=== PATIENT | male | born 1955 | race Caucasian/White ===

== ENCOUNTER 2021-02-28 18:07 | Inpatient (IN) | payer OTHER, MEDICARE ==
[~2021-02-28] VITALS: Ht 170.2 cm; Wt 79.5 kg
[2021-02-28] VITALS (10 sets, daily range): BP systolic 120–144; BP diastolic 60–74
[~2021-02-28 18:07] MED LIST: AMLO10TA PO; ASPI-845 PO; BUPR100T5 PO; LISI30TA4 PO; METO50TA7 PO; TRAM50TA2 PO
[2021-02-28] MEDS ORDERED: pantoprazole 40 MG vial IV ONE (18:35)
[2021-02-28 19:09] LABS: BASOPHILS # (AUTO) 0.1 X10'3 (0-0.2); BASOPHILS % (AUTO) 0.9 % (0-1); EOSINOPHILS # (AUTO) 0.1 X10'3 (0-0.9); LYMPHOCYTES # (AUTO) 1.5 X10'3 (1.1-4.8); LYMPHOCYTES % (AUTO) 20.3 % (21-51); MEAN CORPUSCULAR HEMOGLOBIN 32.1 PG (27.0-31.0); MEAN CORPUSCULAR HGB CONC 34.8 g/dL (33.0-36.5); MEAN CORPUSCULAR VOLUME 92.4 FL (78-98); MEAN PLATELET VOLUME 8.2 FL (7.4-10.4); MONOCYTES # (AUTO) 0.4 X10'3 (0-0.9); MONOCYTES % (AUTO) 5.6 % (2-12); NEUTROPHILS # (AUTO) 5.2 X10'3 (1.8-7.7); NEUTROPHILS % (AUTO) 71.2 % (42-75); PLATELET COUNT 174 X10'3 (140-440); RED CELL DISTRIBUTION WIDTH 14.2 % (11.5-14.5); WHITE BLOOD COUNT 7.3 X10'3 (4.5-11.0)
[2021-02-28 19:15] LABS: HEMATOCRIT 16.6 % (42.0-52.0); HEMOGLOBIN 5.8 g/dl (14.0-17.9)
[2021-02-28 19:23] LABS: PARTIAL THROMBOPLASTIN TIME 23 SECONDS (22-32)
[2021-02-28 19:25] LABS: ALANINE AMINOTRANSFERASE 25 U/L (12-78); ALBUMIN/GLOBULIN RATIO 1.3 (1.1-1.5); ALKALINE PHOSPHATASE 78 IU/L (46-116); ANION GAP 11 (8-16); ASPARTATE AMINO TRANSFERASE 20 U/L (10-37); BILIRUBIN,TOTAL 0.3 MG/DL (0.1-1.0); BLOOD UREA NITROGEN 42 MG/DL (7-18); BUN/CREATININE RATIO 35.6 (5.4-32.0); CALCIUM 8.3 MG/DL (8.5-10.1); CHLORIDE 110 MMOL/L (99-107); CREATININE 1.18 MG/DL (0.60-1.10); GLUCOSE 104 MG/DL (70-104); POTASSIUM 3.7 MMOL/L (3.5-5.1); SODIUM 146 MMOL/L (135-145); TOTAL CARBON DIOXIDE 25.5 MMOL/L (24-32); TOTAL PROTEIN 5.4 G/DL (6.4-8.2); eGFR 62 ML/MIN
[2021-02-28] MEDS ORDERED: potassium Cl 40MEQ/1/2NS 520ml 520 ML IV PRN ×2 (20:15)
[2021-02-28] MEDS ORDERED: magnesium hydroxide 30ml (MOM) UD suspension PO PRN (20:15)
[2021-02-28] MEDS: normal saline 1000ml 1,000 ML IV SCH (20:15)
[2021-02-28] MEDS ORDERED: acetaminophen 325mg tablet PO PRN (20:15)
[2021-02-28] MEDS ORDERED: ondansetron/PF 4mg/2ml inj IV PRN (20:15)
[2021-02-28] MEDS ORDERED: mag hydrox/Alum hydrox/simeth 30ml oral suspension PO PRN (20:15)
[2021-02-28] MEDS: pantoprazole 40MG/NS 100ML BAG 100 ML IV SCH (20:17)
[2021-02-28] MEDS ORDERED: PEG 3350/Na sulf,bicarb,Cl/KCl oral sol 4 liter bottle PO ONE (20:20)
[2021-02-28] MEDS ORDERED: morphine 2 MG/ML inj. syringe IV PRN (20:20)
[2021-02-28 20:25] LABS: CLARITY,URINE CLEAR (Clear); COLOR,URINE YELLOW (Yellow); GLUCOSE, URINE NEGATIVE (Neg); KETONES,URINE NEGATIVE (Neg); LEUKOCYTE ESTERASE ,URINE NEGATIVE (Neg); NITRITES, URINE NEGATIVE (Neg); OCCULT BLOOD,URINE NEGATIVE (Neg); PROTEIN,URINE NEGATIVE (Neg); UA COLLECTION TYPE URINAL; UROBILINOGEN,URINE 0.2 E.U/dL (0.2-1.0)
[2021-03-01] VITALS (21 sets, daily range): BP systolic 114–168; BP diastolic 59–90
[2021-03-01] MEDS: pantoprazole 40MG/NS 100ML BAG 100 ML IV SCH ×7 (00:17→20:55)
[2021-03-01] MEDS ORDERED: metoclopramide 5 mg/ml inj IV ONE (02:10)
--- NOTE | 2021-03-01 02:43 | NUR ---
PATIENT GOT UP FROM BEDSIDE COMMODE AND BECAME VERY DIZZY. HE SAT ON THE FLOOR WITH HIS ELBOWS ON HIS BEDSIDE. TWO MINUTES AFTER I TRIED TO HELP HIM GET UP ONTO BED, HE BEGAN VOMITING PINK EMESIS AND A LARGE BLOOD CLOT. VITAL SIGNS HAVE BEEN RETAKEN. VITALS STABLE, PT REPORTS FEELING 'MUCH BETTER NOW'. HE IS ON THE BED NOW AND MEDICATED FOR NAUSEA. PT ALERT AND ORIENTED X4. CALLED DR SRIVASTAVA AND INFORMED ON INCIDENT. GAVE TELEPHONE ORDER FOR STAT CBC AND 500 CC OF NS.
[2021-03-01] MEDS ORDERED: normal saline 500ml IV soln 500 ML IV ONE (02:50)
[2021-03-01 03:19] LABS: BASOPHILS # (AUTO) 0.1 X10'3 (0-0.2); BASOPHILS % (AUTO) 0.8 % (0-1); EOSINOPHILS # (AUTO) 0.2 X10'3 (0-0.9); EOSINOPHILS % (AUTO) 1.9 % (0-6); LYMPHOCYTES # (AUTO) 1.8 X10'3 (1.1-4.8); MEAN CORPUSCULAR HEMOGLOBIN 32.5 PG (27.0-31.0); MEAN CORPUSCULAR HGB CONC 34.5 g/dL (33.0-36.5); MEAN CORPUSCULAR VOLUME 94.3 FL (78-98); MEAN PLATELET VOLUME 8.5 FL (7.4-10.4); MONOCYTES # (AUTO) 0.5 X10'3 (0-0.9); MONOCYTES % (AUTO) 5.5 % (2-12); NEUTROPHILS # (AUTO) 6.6 X10'3 (1.8-7.7); NEUTROPHILS % (AUTO) 71.8 % (42-75); PLATELET COUNT 152 X10'3 (140-440); RED BLOOD COUNT 2.05 X10'6 (4.70-6.10); RED CELL DISTRIBUTION WIDTH 13.9 % (11.5-14.5); WHITE BLOOD COUNT 9.1 X10'3 (4.5-11.0)
[2021-03-01 03:23] LABS: HEMATOCRIT 19.4 % (42.0-52.0); HEMOGLOBIN 6.7 g/dl (14.0-17.9)
--- NOTE | 2021-03-01 03:26 | NUR ---
NOTIFIED MD OF NEW HGB AND HCT LEVELS. RECIEVED VERBAL ORDER FOR 2 MORE UNITS OF BLOOD. ORDERS PLACED.
[2021-03-01 04:07] LABS: ALANINE AMINOTRANSFERASE 17 U/L (12-78); ALBUMIN 2.6 G/DL (3.4-5.0); ALBUMIN/GLOBULIN RATIO 1.2 (1.1-1.5); ALKALINE PHOSPHATASE 67 IU/L (46-116); ANION GAP 14 (8-16); ASPARTATE AMINO TRANSFERASE 23 U/L (10-37); BILIRUBIN,TOTAL 0.4 MG/DL (0.1-1.0); BLOOD UREA NITROGEN 38 MG/DL (7-18); BUN/CREATININE RATIO 27.5 (5.4-32.0); CALCIUM 7.5 MG/DL (8.5-10.1); CHLORIDE 113 MMOL/L (99-107); CREATININE 1.38 MG/DL (0.60-1.10); GLUCOSE 199 MG/DL (70-104); POTASSIUM 3.1 MMOL/L (3.5-5.1); SODIUM 146 MMOL/L (135-145); TOTAL CARBON DIOXIDE 19.1 MMOL/L (24-32); TOTAL PROTEIN 4.8 G/DL (6.4-8.2); eGFR 51 ML/MIN
--- NOTE | 2021-03-01 04:40 | NUR ---
PT RECIEVING THIRD UNIT OF BLOOD. PT IS STABLE AND TOLERATING WELL.
[2021-03-01] MEDS: normal saline 1000ml 1,000 ML IV SCH ×2 (06:16→20:56)
--- NOTE | 2021-03-01 07:35 | NUR ---
BLOOD STARTED AT 0720, VSS
[2021-03-01] MEDS ORDERED: K and/or MAG REPLACEMENT MC SCH (08:00)
[2021-03-01] MEDS: docusate sod 100mg capsule PO SCH ×2 (08:00→20:55)
[2021-03-01] MEDS ORDERED: magnesium Cl slow-release 64mg tablet PO PRN (08:55)
[2021-03-01] MEDS ORDERED: potassium Cl 20 mEq SR tablet PO PRN (08:55)
[2021-03-01] MEDS ORDERED: magnesium 4gm in 100ml NS 100 ML IV PRN (08:55)
--- NOTE | 2021-03-01 09:07 | NUR ---
REPORT GIVEN TO DAVINA RODRIGUEZ GOING TO ROOM 360A
--- NOTE | 2021-03-01 09:52 | NUR ---
PT HAD LARGE DARK LIQUID STOOL WITH TINGE OF BRIGHT RED.
[2021-03-01] MEDS ORDERED: POTA-82 PO (12:52)
[2021-03-01] MEDS ORDERED: ROSU5TAB PO (12:52)
[2021-03-01] MEDS: potassium Cl 20 mEq SR tablet PO PRN ×2 (13:58→20:56)
[2021-03-01] MEDS ORDERED: fentaNYL/PF 50MCG/1 ML 2ML syringe ONE ×2 (18:57→19:47)
[2021-03-01] MEDS ORDERED: LIDOcaine Viscous 15ml cup ONE (18:57)
[2021-03-01] MEDS ORDERED: MIDAZolam 1 MG/ML 5ML VIAL ONE ×2 (18:57→19:47)
[2021-03-01] MEDS ORDERED: epiNEPHrine 0.1mg/ml 10ml syringe ONE (19:27)
[2021-03-01] MEDS: K and/or MAG REPLACEMENT MC SCH (20:00)
[2021-03-02] VITALS (8 sets, daily range): BP systolic 118–174; BP diastolic 62–96
[2021-03-02] MEDS: potassium Cl 20 mEq SR tablet PO PRN ×3 (02:11→22:54)
[2021-03-02] MEDS: pantoprazole 40MG/NS 100ML BAG 100 ML IV SCH ×5 (02:11→19:14)
[2021-03-02] MEDS: normal saline 1000ml 1,000 ML IV SCH ×2 (02:15→12:15)
[2021-03-02 06:11] LABS: BASOPHILS % (AUTO) 0.6 % (0-1); EOSINOPHILS # (AUTO) 0.1 X10'3 (0-0.9); EOSINOPHILS % (AUTO) 1.7 % (0-6); LYMPHOCYTES # (AUTO) 2.1 X10'3 (1.1-4.8); LYMPHOCYTES % (AUTO) 30.1 % (21-51); MEAN CORPUSCULAR HEMOGLOBIN 31.4 PG (27.0-31.0); MEAN CORPUSCULAR HGB CONC 33.6 g/dL (33.0-36.5); MEAN CORPUSCULAR VOLUME 93.4 FL (78-98); MEAN PLATELET VOLUME 8.6 FL (7.4-10.4); MONOCYTES # (AUTO) 0.5 X10'3 (0-0.9); NEUTROPHILS # (AUTO) 4.3 X10'3 (1.8-7.7); NEUTROPHILS % (AUTO) 60.6 % (42-75); PLATELET COUNT 121 X10'3 (140-440); RED BLOOD COUNT 2.15 X10'6 (4.70-6.10); RED CELL DISTRIBUTION WIDTH 14.9 % (11.5-14.5); WHITE BLOOD COUNT 7.1 X10'3 (4.5-11.0)
[2021-03-02 06:28] LABS: ALANINE AMINOTRANSFERASE 17 U/L (12-78); ALBUMIN 2.6 G/DL (3.4-5.0); ALBUMIN/GLOBULIN RATIO 1.3 (1.1-1.5); ALKALINE PHOSPHATASE 65 IU/L (46-116); ANION GAP 9 (8-16); ASPARTATE AMINO TRANSFERASE 19 U/L (10-37); BILIRUBIN,TOTAL 0.4 MG/DL (0.1-1.0); BLOOD UREA NITROGEN 19 MG/DL (7-18); BUN/CREATININE RATIO 22.6 (5.4-32.0); CALCIUM 7.6 MG/DL (8.5-10.1); CHLORIDE 114 MMOL/L (99-107); CREATININE 0.84 MG/DL (0.60-1.10); GLUCOSE 85 MG/DL (70-104); MAGNESIUM 1.8 MG/DL (1.5-2.4); PHOSPHORUS 2.5 MG/DL (2.3-4.5); POTASSIUM 3.4 MMOL/L (3.5-5.1); SODIUM 146 MMOL/L (135-145); TOTAL CARBON DIOXIDE 23.3 MMOL/L (24-32); TOTAL PROTEIN 4.6 G/DL (6.4-8.2); eGFR > 90 ML/MIN
--- NOTE | 2021-03-02 06:29 | NUR ---
Problems reprioritized. Patient report given, questions answered & plan of care reviewed with MICHAEL LOMAS.
--- NOTE | 2021-03-02 06:38 | NUR ---
Patient in room [facility]. I have received report from ABEBE Landin and had the opportunity to ask questions and assume patient care.
[2021-03-02 06:40] LABS: HEMOGLOBIN 6.7 g/dl (14.0-17.9)
[2021-03-02] MEDS: K and/or MAG REPLACEMENT MC SCH ×2 (08:00→20:00)
[2021-03-02] MEDS: docusate sod 100mg capsule PO SCH ×2 (08:00→20:00)
--- NOTE | 2021-03-02 18:41 | NUR ---
Problems reprioritized. Patient report given, questions answered & plan of care reviewed with ABEBE Epps.
[2021-03-03] VITALS: BP 150/74
[2021-03-03 00:22] VITALS: BP 150/74
[2021-03-03 00:42] VITALS: BP 157/73
[2021-03-03] MEDS: pantoprazole 40MG/NS 100ML BAG 100 ML IV SCH ×3 (00:48→11:00)
[2021-03-03 01:42] VITALS: BP 150/71
[2021-03-03 02:15] VITALS: BP 160/76
[2021-03-03] MEDS: normal saline 1000ml 1,000 ML IV SCH ×2 (02:47→08:15)
[2021-03-03 06:20] LABS: BASOPHILS % (AUTO) 0.6 % (0-1); EOSINOPHILS # (AUTO) 0.2 X10'3 (0-0.9); EOSINOPHILS % (AUTO) 2.8 % (0-6); HEMATOCRIT 24.3 % (42.0-52.0); HEMOGLOBIN 8.7 g/dl (14.0-17.9); LYMPHOCYTES # (AUTO) 1.7 X10'3 (1.1-4.8); LYMPHOCYTES % (AUTO) 23.1 % (21-51); MEAN CORPUSCULAR HEMOGLOBIN 32.7 PG (27.0-31.0); MEAN CORPUSCULAR HGB CONC 35.8 g/dL (33.0-36.5); MEAN CORPUSCULAR VOLUME 91.5 FL (78-98); MEAN PLATELET VOLUME 8.6 FL (7.4-10.4); MONOCYTES # (AUTO) 0.4 X10'3 (0-0.9); NEUTROPHILS # (AUTO) 4.8 X10'3 (1.8-7.7); NEUTROPHILS % (AUTO) 67.5 % (42-75); PLATELET COUNT 140 X10'3 (140-440); RED BLOOD COUNT 2.66 X10'6 (4.70-6.10); RED CELL DISTRIBUTION WIDTH 14.5 % (11.5-14.5); WHITE BLOOD COUNT 7.2 X10'3 (4.5-11.0)
[2021-03-03 06:41] LABS: ALANINE AMINOTRANSFERASE 21 U/L (12-78); ALBUMIN 2.9 G/DL (3.4-5.0); ALBUMIN/GLOBULIN RATIO 1.3 (1.1-1.5); ALKALINE PHOSPHATASE 73 IU/L (46-116); ANION GAP 9 (8-16); ASPARTATE AMINO TRANSFERASE 24 U/L (10-37); BILIRUBIN,TOTAL 0.5 MG/DL (0.1-1.0); BLOOD UREA NITROGEN 8 MG/DL (7-18); BUN/CREATININE RATIO 8.2 (5.4-32.0); CHLORIDE 111 MMOL/L (99-107); CREATININE 0.98 MG/DL (0.60-1.10); GLUCOSE 85 MG/DL (70-104); MAGNESIUM 1.5 MG/DL (1.5-2.4); PHOSPHORUS 2.7 MG/DL (2.3-4.5); POTASSIUM 3.5 MMOL/L (3.5-5.1); SODIUM 146 MMOL/L (135-145); TOTAL CARBON DIOXIDE 26.3 MMOL/L (24-32); TOTAL PROTEIN 5.1 G/DL (6.4-8.2); eGFR 76 ML/MIN
--- NOTE | 2021-03-03 06:45 | NUR ---
Patient in room [facility] 346. I have received report from Supriya LOMAS and had the opportunity to ask questions and assume patient care.
[2021-03-03] MEDS ORDERED: atorvastatin 20mg tablet PO SCH (08:00)
[2021-03-03] MEDS ORDERED: lisinopril 10 MG tablet PO SCH (08:00)
[2021-03-03] MEDS: K and/or MAG REPLACEMENT MC SCH (08:00)
[2021-03-03] MEDS ORDERED: amLODIPine 5mg tablet PO SCH (08:00)
[2021-03-03 08:20] VITALS: BP_SYST 141
[2021-03-03] MEDS: docusate sod 100mg capsule PO SCH (08:20)
[2021-03-03] MEDS ORDERED: PANT40TA54 PO (09:41)
[2021-03-03] MEDS ORDERED: SUCR1TAB34 PO (09:43)
--- NOTE | 2021-03-03 12:30 | NUR ---
Pt Dc to home with family. pt verbalizes understanding of ALL DC orders and understands the importance of [facility] up [facility] and [facility] Toure. Pt is A & O x 4 and in no apparent distress. pt given two new prescriptions lilly printed [facility]. Pt educated on eating a full diet and no more smoking. Pt's IV cath removed intact. pt dress himself, packed his belongings and was escorted to the front where his family member pick him up.
== END 2021-03-03 12:27 | disposition home or self-care (01) | DRG 379 ==
LOC: ER 18:08 → UNDOADMIN 20:14 → ED HOLD 20:14 → SUR 3N 03-01 09:49
PROVIDERS: ADMIT Internal Medicine; ATTEND Family Medicine
PROC: 30233N1 Transfusion of Nonautologous Red Blood Cells into Peripheral Vein, Percutaneous Approach (ICD-10-PCS; 2021-02-28)
PROC: 0DB68ZX Excision of Stomach, Via Natural or Artificial Opening Endoscopic, Diagnostic (ICD-10-PCS; principal; 2021-03-01)
PROC: 0W3P8ZZ Control Bleeding in Gastrointestinal Tract, Via Natural or Artificial Opening Endoscopic (ICD-10-PCS; 2021-03-01)
PROC: 0D748ZZ Dilation of Esophagogastric Junction, Via Natural or Artificial Opening Endoscopic (ICD-10-PCS; 2021-03-01)
DX: K26.4 Chronic or unspecified duodenal ulcer with hemorrhage (principal); D50.9 Iron deficiency anemia, unspecified; E11.42 Type 2 diabetes mellitus with diabetic polyneuropathy; E78.00 Pure hypercholesterolemia, unspecified; I10 Essential (primary) hypertension; F12.90 Cannabis use, unspecified, uncomplicated; F41.9 Anxiety disorder, unspecified; G47.30 Sleep apnea, unspecified; G89.29 Other chronic pain; E78.5 Hyperlipidemia, unspecified; K44.9 Diaphragmatic hernia without obstruction or gangrene; M54.9 Dorsalgia, unspecified; K22.2 Esophageal obstruction; R63.0 Anorexia; R63.4 Abnormal weight loss; I25.10 Atherosclerotic heart disease of native coronary artery without angina pectoris; F17.200 Nicotine dependence, unspecified, uncomplicated; Z86.73 Personal history of transient ischemic attack (TIA), and cerebral infarction without residual deficits; Z68.27 Body mass index [BMI] 27.0-27.9, adult; Z88.0 Allergy status to penicillin; Z79.899 Other long term (current) drug therapy; Z79.82 Long term (current) use of aspirin
CPT/HCPCS: 36415; 36430; 43227; 43236; 43239; 44366; 71045; 80053; 81003; 83735; 84100; 85025; 85610; 85730; 86885; 86900; 86901; 86920; 93005; 96374; 99152; 99153; 99291; A4620; C9113; G0378; J0171; J2250; J2765; J3010; J7030; J7040; P9016

== ENCOUNTER 2021-03-04 17:04 | Emergency (ER) | payer OTHER, MEDICARE ==
[~2021-03-04] VITALS: Ht 172.7 cm; Wt 72.7 kg
[~2021-03-04 17:04] MED LIST changes: -ASPI-845 PO; -BUPR100T5 PO; -METO50TA7 PO; +PANT40TA54 PO; +POTA-82 PO; +ROSU5TAB PO; +SUCR1TAB34 PO; -TRAM50TA2 PO
[2021-03-04 18:10] LABS: BASOPHILS % (AUTO) 0.7 % (0-1); EOSINOPHILS # (AUTO) 0.3 X10'3 (0-0.9); EOSINOPHILS % (AUTO) 4.4 % (0-6); HEMOGLOBIN 9.2 g/dl (14.0-17.9); LYMPHOCYTES # (AUTO) 1.4 X10'3 (1.1-4.8); LYMPHOCYTES % (AUTO) 22.2 % (21-51); MEAN CORPUSCULAR HEMOGLOBIN 32.2 PG (27.0-31.0); MEAN CORPUSCULAR HGB CONC 33.9 g/dL (33.0-36.5); MEAN CORPUSCULAR VOLUME 94.9 FL (78-98); MEAN PLATELET VOLUME 8.5 FL (7.4-10.4); MONOCYTES # (AUTO) 0.5 X10'3 (0-0.9); MONOCYTES % (AUTO) 7.7 % (2-12); PLATELET COUNT 189 X10'3 (140-440); RED BLOOD COUNT 2.84 X10'6 (4.70-6.10); RED CELL DISTRIBUTION WIDTH 14.9 % (11.5-14.5); WHITE BLOOD COUNT 6.1 X10'3 (4.5-11.0)
[2021-03-04 18:20] LABS: ALANINE AMINOTRANSFERASE 30 U/L (12-78); ALBUMIN 2.9 G/DL (3.4-5.0); ALKALINE PHOSPHATASE 123 IU/L (46-116); ANION GAP 8 (8-16); ASPARTATE AMINO TRANSFERASE 28 U/L (10-37); BILIRUBIN,TOTAL 0.3 MG/DL (0.1-1.0); BLOOD UREA NITROGEN 8 MG/DL (7-18); CALCIUM 7.8 MG/DL (8.5-10.1); CHLORIDE 109 MMOL/L (99-107); GLUCOSE 96 MG/DL (70-104); POTASSIUM 3.5 MMOL/L (3.5-5.1); SODIUM 144 MMOL/L (135-145); TOTAL CARBON DIOXIDE 27.5 MMOL/L (24-32); TOTAL PROTEIN 5.7 G/DL (6.4-8.2); eGFR 75 ML/MIN
[2021-03-04 18:23] LABS: CLARITY,URINE CLEAR (Clear); COLOR,URINE STRAW (Yellow); UA COLLECTION TYPE URINAL
[2021-03-04 18:24] LABS: GLUCOSE, URINE NEGATIVE (Neg); KETONES,URINE NEGATIVE (Neg); LEUKOCYTE ESTERASE ,URINE NEGATIVE (Neg); NITRITES, URINE NEGATIVE (Neg); OCCULT BLOOD,URINE TRACE-INTACT (Neg); PROTEIN,URINE NEGATIVE (Neg); UROBILINOGEN,URINE 0.2 E.U/dL (0.2-1.0)
[2021-03-04 18:37] LABS: SQUAMOUS EPITHELIAL CELL,UR FEW /LPF (FEW)
[2021-03-04 18:38] LABS: BACTERIA,URINE NONE SEEN /HPF (Neg); RBC,URINE 0-2 /HPF (0-2); WBC,URINE 0-4 /HPF (0-4)
[2021-03-04] MEDS ORDERED: iohexol 300mg/ml 100ml inj. ONE (22:09)
[2021-03-05 01:09] VITALS: BP 145/67
== END 2021-03-05 01:10 | disposition home or self-care (01) ==
LOC: ER 17:04
DX: D63.1 Anemia in chronic kidney disease (principal); K57.90 Diverticulosis of intestine, part unspecified, without perforation or abscess without bleeding; I25.10 Atherosclerotic heart disease of native coronary artery without angina pectoris; E78.00 Pure hypercholesterolemia, unspecified; I10 Essential (primary) hypertension; E11.43 Type 2 diabetes mellitus with diabetic autonomic (poly)neuropathy; F12.90 Cannabis use, unspecified, uncomplicated; G47.30 Sleep apnea, unspecified; Z86.73 Personal history of transient ischemic attack (TIA), and cerebral infarction without residual deficits; Z72.89 Other problems related to lifestyle; Z88.0 Allergy status to penicillin; Z79.82 Long term (current) use of aspirin; Z79.899 Other long term (current) drug therapy
CPT/HCPCS: 36415; 74177; 80053; 81001; 85025; 93005; 99285; Q9967

== ENCOUNTER 2021-10-09 15:27 | Observation (INO) | payer OTHER, MEDICARE ==
[~2021-10-09] VITALS: Ht 172.7 cm; Wt 90.9 kg
[2021-10-09 15:52] LABS: BASOPHILS # (AUTO) 0.1 X10'3 (0-0.2); BASOPHILS % (AUTO) 0.9 % (0-1); EOSINOPHILS # (AUTO) 0.2 X10'3 (0-0.9); EOSINOPHILS % (AUTO) 2.4 % (0-6); HEMATOCRIT 40.4 % (42.0-52.0); HEMOGLOBIN 13.8 g/dl (14.0-17.9); LYMPHOCYTES # (AUTO) 1.6 X10'3 (1.1-4.8); LYMPHOCYTES % (AUTO) 15.9 % (21-51); MEAN CORPUSCULAR HEMOGLOBIN 31.5 PG (27.0-31.0); MEAN CORPUSCULAR HGB CONC 34.1 g/dL (33.0-36.5); MEAN CORPUSCULAR VOLUME 92.3 FL (78-98); MEAN PLATELET VOLUME 7.7 FL (7.4-10.4); MONOCYTES # (AUTO) 0.7 X10'3 (0-0.9); MONOCYTES % (AUTO) 6.6 % (2-12); NEUTROPHILS # (AUTO) 7.4 X10'3 (1.8-7.7); NEUTROPHILS % (AUTO) 74.2 % (42-75); PLATELET COUNT 243 X10'3 (140-440); RED BLOOD COUNT 4.37 X10'6 (4.70-6.10); RED CELL DISTRIBUTION WIDTH 14.3 % (11.5-14.5)
[2021-10-09 16:15] LABS: ALANINE AMINOTRANSFERASE 26 U/L (12-78); ALBUMIN 3.9 G/DL (3.4-5.0); ALBUMIN/GLOBULIN RATIO 1.2 (1.1-1.5); ALKALINE PHOSPHATASE 148 IU/L (46-116); ANION GAP 9 (8-16); ASPARTATE AMINO TRANSFERASE 22 U/L (10-37); BILIRUBIN,TOTAL 0.3 MG/DL (0.1-1.0); BLOOD UREA NITROGEN 7 MG/DL (7-18); BUN/CREATININE RATIO 7.8 (5.4-32.0); CALCIUM 8.7 MG/DL (8.5-10.1); CHLORIDE 106 MMOL/L (99-107); GLUCOSE 105 MG/DL (70-104); POTASSIUM 3.3 MMOL/L (3.5-5.1); SODIUM 143 MMOL/L (135-145); TOTAL CARBON DIOXIDE 28.3 MMOL/L (24-32); TOTAL PROTEIN 7.1 G/DL (6.4-8.2); eGFR 84 ML/MIN
[2021-10-09] MEDS ORDERED: ondansetron/PF 4mg/2ml inj IV PRN (17:45)
[2021-10-09] MEDS ORDERED: mag hydrox/Alum hydrox/simeth 30ml oral suspension PO PRN (17:45)
[2021-10-09] MEDS ORDERED: acetaminophen 325mg tablet PO PRN ×2 (17:45)
[2021-10-09] MEDS ORDERED: HYDROcodone/acetaminophen 5mg/325mg tablet PO PRN (17:45)
[2021-10-09] MEDS ORDERED: magnesium hydroxide 30ml (MOM) UD suspension PO PRN (17:45)
[2021-10-09] MEDS ORDERED: morphine 2 MG/ML inj. syringe IV PRN ×2 (17:45)
[2021-10-09] MEDS: dextrose 5%-1/2 normal saline 1,000 ML IV SCH (18:50)
[2021-10-09 19:16] LABS: CLARITY,URINE CLEAR (Clear); GLUCOSE, URINE NEGATIVE (Neg); KETONES,URINE NEGATIVE (Neg); LEUKOCYTE ESTERASE ,URINE NEGATIVE (Neg); NITRITES, URINE NEGATIVE (Neg); OCCULT BLOOD,URINE SMALL (Neg); PROTEIN,URINE NEGATIVE (Neg); UROBILINOGEN,URINE 0.2 E.U/dL (0.2-1.0)
[2021-10-09 19:22] LABS: COLOR,URINE Colorless (Yellow); UA COLLECTION TYPE URINAL
[2021-10-09 19:24] LABS: MUCUS STRANDS NONE SEEN /LPF (Neg); SQUAMOUS EPITHELIAL CELL,UR FEW /LPF (FEW)
[2021-10-09 19:25] LABS: BACTERIA,URINE FEW /HPF (Neg); RBC,URINE 0-2 /HPF (0-2); WBC,URINE NONE SEEN /HPF (0-4)
[2021-10-09] MEDS: docusate sod 100mg capsule PO SCH (20:00)
[2021-10-09] MEDS ORDERED: metoprolol tartrate 1mg/ml inj IV PRN (23:25)
[2021-10-09] MEDS ORDERED: regadenoson 0.4mg/5ml syringe IV PRN (23:25)
[2021-10-09] MEDS ORDERED: nitroGLYCERIN 0.4mg SUBLingual tab SL PRN (23:25)
--- NOTE | 2021-10-09 23:35 | NUR ---
Patient in room ED 6. I have received report from Billet Heater OperatorCynthia and had the opportunity to ask questions and will assume patient care upon arrival to the floor. Addendum: 10/09/21 at 2336 by Stacey Villavicencio RN Amended: Links added.
--- NOTE | 2021-10-09 23:40 | NUR ---
pt arriveed to the floor on a gurney and assisted in ambulating from gurney to bed. pt tolerated it well. no s&s of distress. changed into hospital gown put on tele number 13. noted sb 50's without complaints of pain or discomfort. iv d51/2ns infusing in #18 in left ac without redness or swelling at site.
[2021-10-09 23:45] VITALS: BP 170/77
--- NOTE | 2021-10-09 23:55 | NUR ---
call to Dr De La Rosa notified of potassium level of 3.3 and orders received for potassium magnesium replacement protocol for the pt.
[2021-10-10] VITALS (11 sets, daily range): BP systolic 145–177; BP diastolic 74–96
[2021-10-10] MEDS ORDERED: magnesium Cl slow-release 64mg tablet PO PRN ×2 (00:15)
[2021-10-10] MEDS ORDERED: potassium Cl 20 mEq SR tablet PO PRN (00:15)
[2021-10-10] MEDS ORDERED: POTASSIUM BICARB 20meq eff tab 20 MEQ TABLET.EFF PO PRN ×2 (00:15)
[2021-10-10] MEDS ORDERED: magnesium 2GM in 50ml NS 50 ML IV PRN (00:15)
[2021-10-10] MEDS ORDERED: magnesium 4gm in 100ml NS 100 ML IV PRN (00:15)
[2021-10-10] MEDS ORDERED: potassium CL 10mEq/100ml bag 100 ML IV PRN ×2 (00:15)
--- NOTE | 2021-10-10 01:00 | NUR ---
pt given effervescent potassium replacement.
[2021-10-10] MEDS: dextrose 5%-1/2 normal saline 1,000 ML IV SCH ×2 (04:15→13:45)
--- NOTE | 2021-10-10 04:15 | NUR ---
pt found side of bed using urinal. forgot to use the call light that was on him. assisted back to bed and bed alarm on.
[2021-10-10 06:24] LABS: BASOPHILS # (AUTO) 0.1 X10'3 (0-0.2); BASOPHILS % (AUTO) 0.8 % (0-1); EOSINOPHILS # (AUTO) 0.2 X10'3 (0-0.9); EOSINOPHILS % (AUTO) 2.9 % (0-6); HEMATOCRIT 39.5 % (42.0-52.0); HEMOGLOBIN 13.2 g/dl (14.0-17.9); LYMPHOCYTES # (AUTO) 1.4 X10'3 (1.1-4.8); LYMPHOCYTES % (AUTO) 19.3 % (21-51); MEAN CORPUSCULAR HEMOGLOBIN 30.5 PG (27.0-31.0); MEAN CORPUSCULAR HGB CONC 33.5 g/dL (33.0-36.5); MEAN CORPUSCULAR VOLUME 91.3 FL (78-98); MEAN PLATELET VOLUME 8.1 FL (7.4-10.4); MONOCYTES # (AUTO) 0.7 X10'3 (0-0.9); MONOCYTES % (AUTO) 8.9 % (2-12); NEUTROPHILS % (AUTO) 68.1 % (42-75); PLATELET COUNT 229 X10'3 (140-440); RED BLOOD COUNT 4.33 X10'6 (4.70-6.10); RED CELL DISTRIBUTION WIDTH 14.2 % (11.5-14.5); WHITE BLOOD COUNT 7.4 X10'3 (4.5-11.0)
--- NOTE | 2021-10-10 06:33 | NUR ---
Problems reprioritized. Patient report given, questions answered & plan of care reviewed with ABEBE ALTAMIRANO. Addendum: 10/10/21 at 0633 by Stacey Villavicencio RN Amended: Links added.
[2021-10-10 06:56] LABS: ALBUMIN 3.4 G/DL (3.4-5.0); ANION GAP 9 (8-16); BLOOD UREA NITROGEN 7 MG/DL (7-18); BUN/CREATININE RATIO 8.3 (5.4-32.0); CALCIUM 8.5 MG/DL (8.5-10.1); CHLORIDE 106 MMOL/L (99-107); CREATININE 0.84 MG/DL (0.60-1.10); GLUCOSE 111 MG/DL (70-104); MAGNESIUM 1.9 MG/DL (1.5-2.4); SODIUM 144 MMOL/L (135-145); TOTAL CARBON DIOXIDE 28.7 MMOL/L (24-32); eGFR > 90 ML/MIN
--- NOTE | 2021-10-10 07:14 | NUR ---
PAGER ID: [phone] MESSAGE: BERNY VELIZ [id number] CRITICAL POTASSIUM 3.0 HAS REPLACE ORDERS, I WILL START REPLACEMENTS THANK YOU ADARSH LOMAS
--- NOTE | 2021-10-10 07:25 | NUR ---
RECEIVED "POST IT" NOTE FROM ELEVATOR CONSTRUCTOR SUPERVISOR THAT NUCLEAR MEDICINE INJECTED PATIENT @0715 FOR KATHRYN SCAN AND WOULD BE RETURNING @ 08 Addendum: 10/10/21 at 0825 by Bebeto Epps RN RETURNING @081 Addendum: 10/10/21 at 0830 by Bebeto Epps RN RETURNING @ 0815 TO TAKE PT FOR SCAN. RECEIVED CALL @ 0815 FROM [employer] CONCERNED ABOUT CRITICAL POTASSIUM LEVEL. I INFORMED CALLER I KNEW OF POTASSIUM LEVEL, ALREADY PAGED DR LOPEZ AND WAS GOING TO INITIATE IV REPLACEMENT D/T PT BEING NPO FOR KATHRYN SCAN. I STATED I WOULD HAVE PREFERRED IF I WAS NOTIFIED OF INJECTION PRIOR SO I COULD DISCUSS THE POTASSIUM LEVEL. REQUEST WAS MADE THAT I CONTACT TO APPROVE 1 PO DOSE OF POTASSIUM AND ALLOW SCAN TO BE PERFORMED. DR LOPEZ RETURNED CALL AND OK'D THIS.
[2021-10-10] MEDS ORDERED: K and/or MAG REPLACEMENT MC SCH ×2 (08:00)
[2021-10-10] MEDS ORDERED: regadenoson 0.4mg/5ml syringe IV PRN (08:00)
[2021-10-10] MEDS ORDERED: nitroGLYCERIN 0.4mg SUBLingual tab SL PRN (08:00)
[2021-10-10] MEDS: docusate sod 100mg capsule PO SCH (08:00)
[2021-10-10] MEDS ORDERED: aminophylline 500mg/20ml vial IV ONE (08:00)
--- NOTE | 2021-10-10 08:23 | NUR ---
PAGER ID: [phone] MESSAGE: RE RANDELL VELIZ [id number] PLEASE CALL RE NASIR/KATHRYN-SCAN. NUC MED HAS QUESTIONS THANK YOU ADARSH LOMAS
[2021-10-10] MEDS: potassium Cl 20 mEq SR tablet PO PRN ×2 (08:35→14:18)
--- NOTE | 2021-10-10 08:43 | NUR ---
[phone] MESSAGE: RANDELL VELIZ RM [id number] PLEASE CALL, NUC MED REQUESTNG CLARIFICATION THANK YOU ADARSH LOMAS
--- NOTE | 2021-10-10 08:50 | NUR ---
CALL RETURNED BY DR LOPEZ, REQUESTED I NOTIFY [facility] TO CONTACT CARDIOLGIST WITH THIS PATIENT
--- NOTE | 2021-10-10 09:25 | NUR ---
Dr Bonita Castillo, compilation clerk space operations officer, gave verbal order to proceed with stress test
[2021-10-10] MEDS ORDERED: LISI40TA13 PO (11:54)
[2021-10-10] MEDS ORDERED: POTA-82 PO (11:58)
[2021-10-10] MEDS ORDERED: ESCI20TA39 PO (12:13)
--- NOTE | 2021-10-10 17:09 | NUR ---
discharged patient, ambualted to lobby where sister waiting to pick him up. PIV removed all discharge instructions given and understood
== END 2021-10-10 17:09 | disposition home or self-care (01) ==
LOC: ER 15:29 → ED HOLD 17:45 → PCU 3S 23:45
PROVIDERS: ADMIT Internal Medicine; ATTEND Internal Medicine
DX: R07.89 Other chest pain (principal); R42 Dizziness and giddiness; I25.10 Atherosclerotic heart disease of native coronary artery without angina pectoris; K21.9 Gastro-esophageal reflux disease without esophagitis; E78.5 Hyperlipidemia, unspecified; I10 Essential (primary) hypertension; E78.00 Pure hypercholesterolemia, unspecified; E87.6 Hypokalemia; E11.42 Type 2 diabetes mellitus with diabetic polyneuropathy; F41.9 Anxiety disorder, unspecified; F17.200 Nicotine dependence, unspecified, uncomplicated; F12.90 Cannabis use, unspecified, uncomplicated; R55 Syncope and collapse; Z88.0 Allergy status to penicillin; Z86.73 Personal history of transient ischemic attack (TIA), and cerebral infarction without residual deficits; Z79.899 Other long term (current) drug therapy
CPT/HCPCS: 36415; 71045; 78452; 80048; 80053; 81001; 82948; 83735; 84132; 84484; 85025; 87081; 93005; 93017; 93306; 96360; 96361; 99285; A9500; G0378; J2785; J7042; 83880